=== PATIENT | female | born 1965 | race African-American/Black ===

== ENCOUNTER → 2017-08-16 | Outpatient (CLI) | payer MEDICAID ==
--- NOTE | 2017-08-17 09:40 | RADIOLOGY REPORT (SQ) ---
EXAM DESCRIPTION: MRI LUMBAR SPINE WITHOUT COMPLETED DATE/TIME: 08/16/2017 4:06 pm REASON FOR STUDY: RADICULOPATHY, LUMBAR REGION M54.16 RADICULOPATHY, LUMBAR REGION COMPARISON: None. TECHNIQUE: Sagittal and Axial imaging includes T1, T2, STIR and gradient echo sequences. Coronal T2/ HASTE imaging. LIMITATIONS: None. FINDINGS: VISUALIZED UPPER ABDOMEN: Limited evaluation. No acute or suspicious findings suggested. SEGMENTATION: No transitional anatomy. The lowest well-developed disc space is labeled L5-S1. ALIGNMENT: Minimal degenerative anterolisthesis of L4 on L5. VERTEBRAE: Intact. BONE MARROW: Normal. No marrow replacement or reactive changes. DISC SIGNAL: Normal. No significant abnormal signal or loss of height. POSTERIOR ELEMENTS: Generally intact. No pars defect evident. HARDWARE: None in the spine. CORD AND CONUS: Normal in size and signal intensity. Conus at the appropriate level. SOFT TISSUES: 3 cm soft tissue mass central soft tissues of the back with high signal on T2 and low s ignal on T1. There is a tract to the skin. Large sebaceous cyst. L1-L2: No significant spinal stenosis or exit foraminal stenosis. L2-L3: No significant spinal stenosis or exit foraminal stenosis. L3-L4: No significant spinal stenosis or exit foraminal stenosis. L4-L5: Mild disc bulge. Facet hypertrophy with fluid in the facets. Mild ligamentous hypertrophy. Moderate narrowing of the right exit foramina with mild compression of the exiting right L4 root. L5-S1: No significant spinal stenosis or exit foraminal stenosis. LOWER THORACIC: Incompletely imaged. No stenosis seen. SACRUM: Visualized upper sacrum intact. OTHER: No other significant findings. IMPRESSION: Disc bulge with facet hypertrophy L4-5 resulting in moderate narrowing of the right exit foramina and mild compression of the exiting right L4 root. Large central sebaceous cyst at the level of T12 in the posterior back. TECHNICAL DOCUMENTATION: JOB ID: [id number] [employer]- All Rights Reserved Reading location - IP/workstation name: [email or web address]
== END ==
LOC: RAD 15:19
PROVIDERS: ATTEND Family Medicine
DX: M54.16 Radiculopathy, lumbar region (principal)
CPT/HCPCS: 72148

== ENCOUNTER 2017-08-23 14:11 | Observation (INO) | payer MEDICAID ==
[2017-08-23] MEDS ORDERED: METOCLOPRAMIDE HCL INJ/PF 10 MG/2 ML SDV IV ONE (15:09)
[2017-08-23] MEDS ORDERED: FENTANYL CITRATE INJ/PF 100 MCG/2 ML AMPUL IV ONE ×2 (15:09→19:34)
[2017-08-23] MEDS ORDERED: NORMAL SALINE 1000 ML 1,000 ML IV ONE (15:09)
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
[2017-08-23 16:10] LABS: ABSOLUTE EOSINOPHILS # (AUTO) 0.1 10^3/uL (0.0-0.6); ABSOLUTE LYMPHOCYTES (AUTO) 2.5 10^3/uL (0.5-4.7); ABSOLUTE MONOCYTES (AUTO) 0.4 10^3/uL (0.1-1.4); ABSOLUTE NEUT (AUTO) 5.8 10^3/uL (1.7-8.2); BASOPHILS % (AUTO) 0.3 % (0-2); EOSINOPHILS % (AUTO) 1.1 % (0-6); HEMATOCRIT 47.7 % (36.0-47.0); HEMOGLOBIN 16.1 g/dL (12.0-15.5); LYMPHOCYTES % (AUTO) 28.3 % (13-45); MEAN CORPUSCULAR HGB CONC 33.7 g/dL (32.0-36.0); MEAN CORPUSCULAR VOLUME 89 fl (80-97); MONOCYTES % (AUTO) 4.8 % (3-13); PLATELET COUNT 473 10^3/uL (150-450); RED BLOOD COUNT 5.36 10^6/uL (3.72-5.28); RED CELL DISTRIBUTION WIDTH 12.6 % (11.5-14.0); SEGMENTED NEUTROPHILS % (AUTO) 65.5 % (42-78); TOTAL CELLS COUNTED % (AUTO) 100 %; WHITE BLOOD COUNT 8.8 10^3/uL (4.0-10.5)
--- NOTE | 2017-08-23 17:35 | RADIOLOGY REPORT (SQ) ---
EXAM DESCRIPTION: U/S ABDOMEN LIMITED W/O DOP COMPLETED DATE/TIME: 08/23/2017 5:21 pm REASON FOR STUDY: RUQ pain COMPARISON: 09/07/2015 TECHNIQUE: Dynamic and static grayscale images acquired of the abdomen and recorded on PACS. Irmao umair selected color Doppler and spectral images recorded. LIMITATIONS: None. FINDINGS: PANCREAS: No masses. Visualized pancreatic duct normal caliber. LIVER: No masses. Echotexture normal. LIVER VASCULATURE: Normal directional flow of the main portal vein and hepatic veins. GALLBLADDER: Multiple shadowing echogenic foci are seen within the gallbladder, noting a 1 cm focus w ithin the proximal cholecystic duct. No mural thickening or pericholecystic fluid. ULTRASOUND-DETECTED BUTT'S SIGN: Negative. INTRAHEPATIC DUCTS AND COMMON DUCT: CBD and intrahepatic ducts normal caliber. No filling defects. INFERIOR VENA CAVA: Normal flow. AORTA: No aneurysm. RIGHT KIDNEY: Normal size. Normal echogenicity. No solid or suspicious masses. No hydronephrosis. No calcifications. PERITONEAL AND RIGHT PLEURAL SPACE: No ascites or effusions. OTHER: No other significant findings. IMPRESSION: Cholelithiasis noting a 1 cm gallstone within the proximal cholecystic duct. No intrahe patic or extrahepatic biliary dilatation. No cholecystic hydrops. No sonographic findings of cholec ystitis. TECHNICAL DOCUMENTATION: JOB ID: [id number]- All Rights Reserved Reading location - IP/workstation name: [email or web address]
[2017-08-23 18:58] LABS: APPEARANCE,URINE SLIGHTLY-CLOUDY; BILIRUBIN,URINE NEGATIVE (NEGATIVE); COLOR,URINE YELLOW; GLUCOSE, URINE NEGATIVE (NEGATIVE); KETONES,URINE NEGATIVE (NEGATIVE); URINE SPECIFIC GRAVITY 1.016
[2017-08-23 18:59] LABS: LEUKOCYTE ESTERASE,URINE NEGATIVE (NEGATIVE); NITRITE,URINE NEGATIVE (NEGATIVE); PROTEIN,URINE NEGATIVE (NEGATIVE); UROBILINOGEN,URINE NEGATIVE mg/dL (<2.0)
[2017-08-23 20:24] LABS: ALANINE AMINOTRANSFERASE 131 U/L (9-52); ALBUMIN 3.5 g/dL (3.5-5.0); ALKALINE PHOSPHATASE 86 U/L (38-126); ASPARTATE AMINO TRANSFERASE 347 U/L (14-36); BILIRUBIN,DIRECT 0.3 mg/dL (0.0-0.4); BILIRUBIN,TOTAL 0.6 mg/dL (0.2-1.3); BLOOD UREA NITROGEN 11 mg/dL (7-20); CALCIUM 9.2 mg/dL (8.4-10.2); GLUCOSE 106 mg/dL (75-110); LIPASE 51.7 U/L (23-300); POTASSIUM 4.4 mmol/L (3.6-5.0); TOTAL PROTEIN 5.8 g/dL (6.3-8.2)
[2017-08-23 20:30] LABS: ANION GAP 5 (5-19); CARBON DIOXIDE 26 mmol/L (22-30); CHLORIDE 106 mmol/L (98-107); SODIUM 136.5 mmol/L (137-145)
[2017-08-23] MEDS ORDERED: CEFAZOLIN 1 GM/D5W RTU 1 GM/50 ML RTUPB IV ONE (21:50)
[2017-08-23] MEDS ORDERED: ONDANSETRON HCL INJ/PF 4 MG/2 ML SDV IV PRN (22:11)
[2017-08-23] MEDS ORDERED: KETOROLAC TROMETHAMINE INJ/PF 30 MG/1 ML SDV IV PRN (22:11)
--- NOTE | 2017-08-23 22:11 | PDOC H&P ---
History of Present Illness Patient complains of: Abdominal pain History of Present Illness: ADRIA DIAZ is a 52 year old female Presents emergency department complaining of acute onset abdominal pain, intolerant of food, taking only ice chips nausea for 3-5 days. It is a bit eccentric. Her history providing skills is somewhat challenging. Nonetheless she was seen in the emergency department earlier this afternoon which she was treated pain medication; laboratory profile showed elevation of liver function studies and gallbladder ultrasound showed cholelithiasis. Surgery was consulted and she was evaluated approximately 9:30 PM. Patient was felt to need admission to the hospital for symptomatic cholelithiasis and undergo interval laparoscopic cholecystectomy. Past Medical History GI Medical History: Reports: Gastroesophageal Reflux Disease Musculoskeltal Medical History: Reports: Arthritis - Bilateral Knees Traumatic Medical History: Reports: Pneumothorax Social History Lives with: Family Smoking Status: Current Every Day Smoker Hx Prescription Drug Abuse: No Family History Family History: None Parental Family History Reviewed: Yes Children Family History Reviewed: Yes Sibling(s) Family History Reviewed.: Yes Medication/Allergy Home Medications: Cyclobenzaprine HCl [Flexeril 5 mg Tablet] 5 mg PO TID PRN #15 tablet 09/02/14 Oxycodone HCl/Acetaminophen [Percocet 5-325 mg Tablet] 1 - 2 tab PO ASDIR PRN # 15 tablet 09/02/14 Promethazine HCl [Phenergan 25 mg Tablet] 1 - 2 tab PO Q6H PRN #15 tablet Tramadol HCl 50 mg PO Q6 #14 tablet 09/07/15 Allergies/Adverse Reactions: No Known Allergies Allergy (Verified 08/23/17 21:16) Review of Systems Eyes: ABSENT: visual disturbances Ears: ABSENT: hearing changes Cardiovascular: ABSENT: chest pain, dyspnea on exertion, edema, orthropnea, palpitations Gastrointestinal: ABSENT: abdominal pain, constipation, diarrhea, hematemesis, hematochezia, nausea, vomiting Physical Exam Vital Signs: Temp Pulse Resp BP Pulse Ox 99.0 F 67 18 147/90 H 97 08/23/17 20:24 08/23/17 20:24 08/23/17 20:24 08/23/17 20:24 08/23/17 20:24 Intake & Output 08/22/17 08/23/17 08/24/17 06:59 06:59 06:59 Weight 108.7 kg General appearance: PRESENT: mild distress Head exam: PRESENT: normocephalic Eye exam: PRESENT: EOMI Ear exam: PRESENT: normal external ear exam Respiratory exam: PRESENT: clear to auscultation ginette Cardiovascular exam: PRESENT: RRR Pulses: PRESENT: normal carotid pulses, normal radial pulses GI/Abdominal exam: PRESENT: other - Abdomen is bloated there is tenderness in the right upper quadrant with mild guarding Rectal exam: PRESENT: deferred Neurological exam: PRESENT: alert, altered, awake Psychiatric exam: PRESENT: anxious Results Laboratory Results: 08/23/17 15:35 08/23/17 19:51 08/23/17 08/23/17 08/23/17 15:35 15:35 18:30 WBC 8.8 RBC 5.36 H Hgb 16.1 H Hct 47.7 H MCV 89 MCH 30.0 MCHC 33.7 RDW 12.6 Plt Count 473 H Seg Neutrophils % 65.5 Lymphocytes % 28.3 Monocytes % 4.8 Eosinophils % 1.1 Basophils % 0.3 Absolute Neutrophils 5.8 Absolute Lymphocytes 2.5 Absolute Monocytes 0.4 Absolute Eosinophils 0.1 Absolute Basophils 0.0 Sodium Cancelled Potassium Cancelled Chloride Cancelled Carbon Dioxide Cancelled Anion Gap Cancelled BUN Cancelled Creatinine Cancelled Est GFR ( Amer) Cancelled Est GFR (Non-Af Amer) Cancelled Glucose Cancelled Calcium Cancelled Total Bilirubin Cancelled AST Cancelled ALT Cancelled Alkaline Phosphatase Cancelled Total Protein Cancelled Albumin Cancelled Lipase Cancelled Urine Color YELLOW Urine Appearance SLIGHTLY-CLOUDY Urine pH 6.0 Ur Specific [place] 1.016 Urine Protein NEGATIVE Urine Glucose (UA) NEGATIVE Urine Ketones NEGATIVE Urine Blood NEGATIVE Urine Nitrite NEGATIVE Ur Leukocyte Esterase NEGATIVE Urine WBC (Auto) 1 Urine RBC (Auto) 1 08/23/17 08/23/17 18:52 19:51 WBC RBC Hgb Hct MCV MCH MCHC RDW Plt Count Seg Neutrophils % Lymphocytes % Monocytes % Eosinophils % Basophils % Absolute Neutrophils Absolute Lymphocytes Absolute Monocytes Absolute Eosinophils Absolute Basophils Sodium Cancelled 136.5 L Potassium Cancelled 4.4 Chloride Cancelled 106 Carbon Dioxide Cancelled 26 Anion Gap Cancelled 5 BUN Cancelled 11 Creatinine Cancelled 0.75 Est GFR ( Amer) Cancelled > 60 Est GFR (Non-Af Amer) Cancelled > 60 Glucose Cancelled 106 Calcium Cancelled 9.2 Total Bilirubin Cancelled 0.6 AST Cancelled 347 H ALT Cancelled 131 H Alkaline Phosphatase Cancelled 86 Total Protein Cancelled 5.8 L Albumin Cancelled 3.5 Lipase Cancelled 51.7 Urine Color Urine Appearance Urine pH Ur Specific [place] Urine Protein Urine Glucose (UA) Urine Ketones Urine Blood Urine Nitrite Ur Leukocyte Esterase Urine WBC (Auto) Urine RBC (Auto) Impressions: Abdomen Ultrasound 08/23/17 15:06 IMPRESSION: Cholelithiasis noting a 1 cm gallstone within the proximal cholecystic duct. No intrahepatic or extrahepatic biliary dilatation. No cholecystic hydrops. No sonographic findings of cholecystitis. Assessment & Plan - Diagnosis (1) Cholecystitis, acute with cholelithiasis Is this a current diagnosis for this admission?: Yes Plan: Patient needs admission, IV fluids intravenous antibiotics; then taken to the operating room for laparoscopic, possible open cholecystectomy in the morning Patient is receiving fentanyl and is a bit loopy so we will hold off on a thorough explanation of the risks benefits and alternatives of planned procedure tomorrow. Originally the patient was planning to go home because of her children but she is now getting someone to retrieve her children and stay tonight in the hospital. (2) Arthritis Is this a current diagnosis for this admission?: Yes (3) Marijuana smoker Is this a current diagnosis for this admission?: Yes - Time Time Spent: 30 to 50 Minutes Critical Time spent with patient: 15-24 minutes Medications reviewed and adjusted accordingly: Yes Anticipated discharge: Home - Inpatient Certification Based on my medical assessment, after consideration of the patient's comorbidities, presenting symptoms, or acuity I expect that the services needed warrant INPATIENT care.: Yes I certify that my determination is in accordance with my understanding of Medicare's requirements for reasonable and necessary INPATIENT services [42 CFR 412.3e].: Yes Medical Necessity: Need For IV Fluids, Need for Pain Control, Need for IV Antibiotics, Need for Surgery
[2017-08-23] MEDS ORDERED: DEXTROSE 50%-WATER 25 GM/50 ML DISP.SYRIN IV PRN ×2 (23:07)
[2017-08-23] MEDS ORDERED: GLUCAGON,HUMAN RECOMB 1 MG INJ SUBCUT PRN (23:07)
[2017-08-23] MEDS ORDERED: DEXTROSE 40% GEL 15 GM TUBE PO PRN ×2 (23:07)
[2017-08-24] MEDS: CEFAZOLIN 2 GM/D5W RTU 2 GM/50 ML RTUPB IV SCH ×2 (05:40→13:15)
[2017-08-24] MEDS ORDERED: BUPIVACAINE HCL 0.25 % INJ/PF (2.5 MG/1 ML) 30 ML VIAL ONE (07:16)
[2017-08-24] MEDS ORDERED: EPHEDRINE SULFATE INJ 50 MG/1 ML AMPULE ONE (09:00)
[2017-08-24] MEDS ORDERED: PROPOFOL INJ 200 MG/20 ML VIAL IV ONE (09:00)
[2017-08-24] MEDS ORDERED: FENTANYL CITRATE INJ/PF 100 MCG/2 ML AMPUL ONE ×3 (09:00→11:02)
[2017-08-24] MEDS ORDERED: MIDAZOLAM 2 MG/2 ML INJ ONE (09:00)
[2017-08-24] MEDS ORDERED: FENTANYL CITRATE INJ/PF 100 MCG/2 ML AMPUL IV PRN ×3 (09:44)
[2017-08-24] MEDS ORDERED: MEPERIDINE HCL/PF INJ 25 MG/1 ML DISP.SYRIN IV PRN (09:44)
[2017-08-24] MEDS ORDERED: PROMETHAZINE HCL INJ 25 MG/1 ML VIAL IV PRN (09:44)
[2017-08-24] MEDS ORDERED: DIPHENHYDRAMINE HCL 50 MG/ML VIAL IV PRN (09:44)
--- NOTE | 2017-08-24 10:35 | Operative Report ---
Operative Report DATE OF SURGERY: 08/24/17 PREOPERATIVE DIAGNOSIS: Acute cholecystitis with cholelithiasis POSTOPERATIVE DIAGNOSIS: Same OPERATION: Laparoscopic cholecystectomy SURGEON: CLARICE MEEHAN ANESTHESIA: GA TISSUE REMOVED OR ALTERED: Gallbladder with contents COMPLICATIONS: None ESTIMATED BLOOD LOSS: Scant INTRAOPERATIVE FINDINGS: See below PROCEDURE: After obtaining informed consent, the patient was taken to the operating room. General Anesthesia was induced; the arms were extended, and the abdomen was exposed, and prepped and draped in a sterile fashion. Instrumentation was set up for laparoscopic cholecystectomy. Surgical plan and surgical timeout were conducted. A vertical incision was made above the umbilicus, and a verres needle was inserted uneventfully into the peritoneal cavity. Pneumoperitoneum was established. The verres needle was removed and a 5 mm trocar was inserted and a 5 mm flexible laparoscope was inserted. Visualization of the peritoneal cavity confirmed safe uneventful entry. Under direct visualization 3 additional 5 mm ports were established, one in the subxiphoid position and second in the subcostal position. The gallbladder is moderately distended, and edematous consistent with acute cholecystitis. Using the laparoscopic trocar, aspirated approximately 50 cc of bile. Visualization of the hepatobiliary anatomy revealed no anatomic variations. A grasper was placed on the fundus of the gallbladder and the gallbladder is elevated over the right surface of the liver; a second grasper was used to grasp the infundibulum of the gallbladder. The neck of the gallbladder and junction with the cystic duct was dissected out. The Cystic artery was in its usual location medial and cephalad to the cystic duct. Photos were taken. The cystic artery was surrounded with a right angle clamp, clipped twice proximally and divided with laparoscopic scissors. We now opened the triangle of [place] by dividing the peritoneal reflection on both the medial and lateral sides of the cystic duct infundibular junction. The critical view was obtained. We now milked the cystic duct of any possible stones, clipped the cystic duct approximately 3 times once distally and divided with scissors. The gallbladder was now removed from the undersurface of the liver using hook cautery dissection. Graspers were repositioned and the gallbladder was removed uneventfully from the abdominal cavity through the super umbilical port site incision. The specimen was examined, then passed off to pathology for permanent analysis. We returned to the peritoneal cavity check for bleeding, and evidence of bile leak, and there was none. We Confirmed satisfactory placement of clips on cystic duct and cystic artery were secured . At this point we felt the operation was complete. The subcutaneous tissue was then anesthetized with quarter percent Marcaine Sponge and needle counts are correct. All ports removed under direct visualization pneumoperitoneum evacuated, supraumbilical fascial defect closed with 0 Vicryl and 5 mm port wounds closed with 3-0 Vicryl suture, benzoin and Steri-Strips. The patient was extubated, and taken to the recovery room in stable condition.
[2017-08-24] MEDS ORDERED: KETOROLAC TROMETHAMINE INJ/PF 30 MG/1 ML SDV IV PRN (10:41)
[2017-08-24] MEDS ORDERED: KETOROLAC TROMETHAMINE INJ/PF 30 MG/1 ML SDV ONE (11:01)
[2017-08-24 14:54] VITALS: BP 122/69
[2017-08-24] MEDS ORDERED: ONDANSETRON HCL INJ/PF 4 MG/2 ML SDV ONE (15:10)
[2017-08-24] MEDS ORDERED: LIDOCAINE 2% INJ-PF (20 MG/ML) 2 ML AMPUL ONE (15:10)
[2017-08-24] MEDS ORDERED: NEOSTIGMINE METHYLSULFATE 10 MG/10 ML VIAL ONE (15:10)
[2017-08-24] MEDS ORDERED: SUCCINYLCHOLINE CHLORIDE INJ 200 MG/10 ML VIAL ONE (15:10)
[2017-08-24] MEDS ORDERED: ROCURONIUM BROMIDE INJ 50 MG/5 ML VIAL IV ONE (15:10)
[2017-08-24] MEDS ORDERED: GLYCOPYRROLATE INJ 0.4 MG/2 ML VIAL ONE (15:10)
[2017-08-24] MEDS ORDERED: DOCUSATE SODIUM 100 MG CAPSULE PO SCH (18:00)
--- NOTE | 2017-08-27 09:35 | DISCHARGE SUMMARY E ---
Discharge Summary NAME: ADRIA DIAZ : 1965 AGE: 52Y ADMITTED: 08/23/2017 DISCHARGED: 08/24/2017 REASON FOR ADMISSION: Symptomatic gallbladder disease. SUMMARY OF HOSPITALIZATION: The patient is a 52-year-old white female who presented to the emergency department complaining of abdominal pain for which she was evaluated and found to have evidence of symptomatic cholelithiasis. Please see her admission history and physical for complete documentation. The patient was admitted to the surgicalist service and kept overnight, where the following morning she was taken to the main operating room and underwent laparoscopic cholecystectomy. Final pathology report showed chronic cholecystitis and cholelithiasis. She tolerated the procedure well, there were no postoperative complications, and she was discharged home the afternoon of postoperative day one. FINAL DIAGNOSIS: Chronic cholecystitis with cholelithiasis status post laparoscopic cholecystectomy by Dr. Blancas. DISPOSITION: The patient will be discharged home to the care of her family. Follow up with Dr. Blancas in approximately 1-2 weeks in [facility]. Resume preoperative medications, diet and activity, and take Toradol p.r.n. pain. DICTATING PHYSICIAN: CLARICE BLANCAS M.D. [id number] PHY#: [id number] ID: [id number] JOB#: [id number] ACCT: [id number] cc:Christopher RUIZ MD, M.D. [facility],
== END 2017-08-24 16:58 | disposition home or self-care (01) ==
LOC: ER 14:11 → EH 22:16 → 2N 23:45
PROVIDERS: ATTEND Surgery
PROC: 0FT44ZZ Resection of Gallbladder, Percutaneous Endoscopic Approach (ICD-10-PCS; principal; 2017-08-23)
DX: K80.12 Calculus of gallbladder with acute and chronic cholecystitis without obstruction (principal); F12.10 Cannabis abuse, uncomplicated; M19.90 Unspecified osteoarthritis, unspecified site
CPT/HCPCS: 96376; 99285; 96361; 96374; 96375; 36415; 83690; 85025; 81025; 80053; 81001; 88304 ×2; 76705; 47562; G0378 ×2; J2250; J0690 ×2; J3490 ×3; J3010 ×2; J1885; J2765; J0330; J2405; S0020; J7030; J2704; 790